=== PATIENT | female | born 1950 | race Caucasian/White ===

== ENCOUNTER → 2016-10-09 | Outpatient (CLI) | payer OTHER, MEDICAID ==
[2016-10-09 16:28] LABS: BASOPHIL % 0.2 % (0-2); PLATELET COUNT 212 x10^3mcL (130-400); RED CELL DISTRIBUTION WIDTH 14.2 % (11.5-14.5)
[2016-10-09 16:59] LABS: T3 TOTAL 1.17 ng/mL
[2016-10-09 17:00] LABS: ALBUMIN 3.7 g/dL (3.4-5.0); ALKALINE PHOSPHATASE 107 U/L (46-116); ALT/SGPT 34 U/L (14-59); AST/SGOT 39 U/L (15-37); BILIRUBIN TOTAL 0.31 mg/dL (0.20-1.00); CALCIUM 8.9 mg/dL (8.5-10.1); CARBON DIOXIDE 28.3 mmol/L (21-32); CHLORIDE SERUM 109 mmol/L (98-107); CHOLESTEROL 165 mg/dL (<200); CHOLESTEROL/HDL RATIO 2.9; CREATININE SERUM 0.8 mg/dL (0.6-1.0); GFR1 > 60 mL/min; GLUCOSE SERUM 100 mg/dL (74-106); HDL CHOLESTEROL 57 mg/dL (40-60); POTASSIUM SERUM 3.9 mmol/L (3.5-5.1); SODIUM SERUM 147 mmol/L (136-145); T4(THYROXINE) 9.5 ug/dL (4.7-13.3); TRIGLYCERIDES 115 mg/dL (<150)
[2016-10-09 17:04] LABS: TOTAL PROTEIN, SERUM 8.3 g/dL (6.4-8.2)
[2016-10-09 17:06] LABS: UA SPECIFIC GRAVITY >=1.030 (1.005-1.035); microscopic required? YES; urine erythrocyte 3+ (NEGATIVE)
== END | disposition home or self-care (01) ==
LOC: LB 15:15
PROVIDERS: Legal Medicine
DX: M54.5 Low back pain (principal); M25.551 Pain in right hip; M25.511 Pain in right shoulder
CPT/HCPCS: 84439